=== PATIENT | male | born 1955 | race Caucasian/White ===

== ENCOUNTER 2017-02-14 16:17 | Observation (INO) | payer MEDICARE, OTHER ==
[2017-02-14] MEDS ORDERED: NORMAL SALINE 1,000 ML IV ONE ×2 (17:29→18:28)
[2017-02-14] MEDS ORDERED: ONDANSETRON HCL/PF 2 MG/ML VIAL IV ONE (17:37)
[2017-02-14 17:40] LABS: Hematocrit 40.1 % (42.0-52.0); Hemoglobin 14.5 gm/dL (13.5-18.0); Mean Cell Volume 101.3 fl (78-100); Mean Corpuscular Hemoglobin 36.6 pg (27-31); Mean Corpuscular Hgb Conc 36.2 g/dl (32-36); Mean Platelet Volume 9.6 fl (6.0-9.5); Neutrophil # 7.1 K/mm3 (1.3-6.0); Platelet Count 149 K/mm3 (150-450); Red Blood Count 3.96 M/mm3 (4.7-6.0); Red Cell Distribution Width 12.4 % (11.5-14.0)
[2017-02-14] MEDS ORDERED: ONDANSETRON HCL/PF 2 MG/ML VIAL ONE (17:47)
[2017-02-14] MEDS ORDERED: LORazepam 2 MG/ML DISP.SYRIN IV ONE (17:57)
[2017-02-14] MEDS ORDERED: LIDOCAINE HCL 20 ML UDC MM ONE (17:57)
[2017-02-14] MEDS ORDERED: MAG HYDROX/ALUMINUM HYD/SIMETH 30 ML UDC PO ONE (17:57)
[2017-02-14] MEDS ORDERED: SUCRALFATE 1 G/10 ML UDC PO ONE (17:57)
--- OUTSIDE RECORDS SUMMARY | 2017-02-14 17:58 | XMS REPORT | Continuity of Care Document ---
:1955 Author Organization [facility] ([facility]) [place] [address] Phone [phone] Care Team Providers Name Role Phone Provider, No-Primary Care Primary Care Provider Unavailable Source Comments This disclosure is being made pursuant to the Care Everywhere program, applicable federal and state laws, and may not contain all informaitonavailable regarding this patient.[facility] ([facility]) Active Allergies and Adverse Reactions Not on File Current Medications Not on file Active Problems Not on file Most Recent Encounters Date Type Specialty Providers Description 01/08/2017 Hospital Encounter Radiation Oncology Blaise Cuevas Chief Comp: Patient MD Reported Reason For Visit 12/06/2016 Hospital Encounter Radiation Oncology Blaise Cuevas Chief Comp: Patient MD Reported Reason For Visit 12/05/2016 Hospital Encounter Radiation Oncology Blaise Cuevas Chief Comp: Patient MD Reported Reason For Visit 12/04/2016 Hospital Encounter Radiation Oncology Blaise Cuevas Chief Comp: Patient MD Reported Reason For Visit 12/01/2016 Hospital Encounter Radiation Oncology Blaise Cuevas, Comp: Patient MD Reported Reason For Visit 11/30/2016 Hospital Encounter Radiation Oncology Blaise Cuevas Chief Comp: Patient MD Reported Reason For Visit 11/29/2016 Hospital Encounter Radiation Oncology Blaise Cuevas Chief Comp: Patient MD Reported Reason For Visit 11/28/2016 Hospital Encounter Radiation Oncology Blaise Cuevas Chief Comp: Patient MD Reported Reason For Visit 11/27/2016 Hospital Encounter Radiation Oncology Blaise Cuevas Chief Comp: Patient MD Reported Reason For Visit 11/24/2016 Hospital Encounter Radiation Oncology Blaise Cuevas Chief Comp: Patient MD Reported Reason For Visit 11/23/2016 Hospital Encounter Radiation Oncology Blaise Cuevas Chief Comp: Patient MD Reported Reason For Visit 11/22/2016 Hospital Encounter Radiation Oncology Blaise Cuevas Chief Comp: Patient MD Reported Reason For Visit 11/21/2016 Hospital Encounter Radiation Oncology Blaise Cuevas, Chief Comp: Patient MD Reported Reason For Visit 11/20/2016 Hospital Encounter Radiation Oncology Blaise Cuevas, Chief Comp: Patient MD Reported Reason For Visit 11/17/2016 Hospital Encounter Radiation Oncology Blaise Cuevas, Chief Comp: Patient MD Reported Reason For Visit 11/16/2016 Hospital Encounter Radiation Oncology Blaise Cuevas, Chief Comp: Patient MD Reported Reason For Visit Social History Tobacco Use Types Packs/Day Years Used Date Never Assessed Plan of Care Health Maintenance Due Date Last Done Comments HCV Screening 1955 Hepatitis B Vaccine (1 of 3 - Primary Series) 1955 Tdap Vaccine 02/01/1964 Lipid Disorder Screening 1971 Td Vaccine 1971 Pneumococcal Vaccine (1 of 3 - PCV13) 02/01/1972 Colonoscopy 2003 Prostate Cancer Screening 2003 Zoster Vaccine 2013 Influenza Vaccine: Seasonal (#1) 05/29/2016 Results from Last 3 Months Not on file
[2017-02-14 17:59] LABS: ALT 36 U/L (19-67); AST 45 U/L (0-48); Albumin * 4.7 gm/dl (3.4-5.0); Alkaline Phosphatase * 108 U/L (50-170); Amylase * 108 U/L (25-115); Anion Gap 27.5 mmol/L (6.8-13.8); BUN/Creatinine Ratio 18.3 (9.0-21.6); Bilirubin Direct 0.3 mg/dL (0.0-0.3); Bilirubin, Total 1.1 mg/dL (0.0-1.1); Bilirubin,Indirect 0.8 mg/dL (0.1-0.7); Blood Urea Nitrogen 24 mg/dL (6-23); Ca. Corrected For Albumin 9.1 mg/dL (8.4-10.2); Carbon Dioxide 23.6 mmol/L (24-32.6); Chloride 80 mmol/L (97-106); Glucose * 123 mg/dL (70-110); Lipase 245 U/L (73-393); Potassium 3.1 mmol/L (3.4-4.6); Sodium 128 mmol/L (132-142); Total Protein 8.5 gm/dL (6.2-8.2)
[2017-02-14] MEDS ORDERED: FAMOTIDINE 10 MG/ML VIAL IV ONE ×2 (18:01→18:03)
[2017-02-14] MEDS ORDERED: LORazepam 2 MG/ML DISP.SYRIN ONE (18:03)
[2017-02-14 18:04] LABS: Troponin I Less than 0.017 ng/ml (0.00-0.10)
[2017-02-14] MEDS ORDERED: METOCLOPRAMIDE HCL 5 MG/ML VIAL IV ONE (18:51)
[2017-02-14] MEDS ORDERED: METOCLOPRAMIDE HCL 5 MG/ML VIAL ONE (19:31)
--- NOTE | 2017-02-14 19:44 | ERNOTE ---
Medical Problem HPI - Narrative Date of Service: 02/14/17 - General Chief Complaint: Nausea/Vomiting Time Seen by Provider: 02/14/17 17:46 Source: patient Exam Limitations: no limitations - Immun/Allergies/Home Medications Immunizations: IMMUNIZATION HX Immunizations Up to Date Yes Allergies/Adverse Reactions: Allergies No Known Allergies Allergy (Verified 02/14/17 16:53) Home Medications: HOME MEDICATIONS traMADol HCL [Ultram] 50 mg PO Q6H PRN #60 tablet 07/13/14 [Last Taken Unknown] Gabapentin 800 mg PO TID 07/18/16 [Last Taken Unknown] - History of Present History Narrative: 62-year-old male presents to emergency room with malaise and nausea/vomiting. Patient states that he has not been able to keep down anything since . Patient also states that he drinks alcohol daily and has not been able to drink any alcohol for the last 3 days. Patient states that he is getting radiation for prostate cancer. Feels like he is in ETOH withdrawl and has had the hiccups for the last 3 days. Date (Duration): 02/14/17 Timing: constant, getting worse Severity: moderate Modifying Factors - (Worsens): Present: eating Review of Systems - Review of Systems Constitutional: Present: See HPI, weakness, fatigue, malaise EYE: Present: no symptoms reported ENT: Present: no symptoms reported Respiratory: Present: no symptoms reported Cardiology: Present: no symptoms reported Gastrointestinal/Abdominal: Present: See HPI, nausea, vomiting, abdominal pain, eating less, drinking less Genitourinary: Present: See HPI Musculoskeletal: Present: See HPI Skin: Present: See HPI Neurological: Present: See HPI - etoh withdrawl Endocrine: Present: no symptoms reported Hematologic/Lymphatic: Present: no symptoms reported Psych: Present: no symptoms reported - Patient's Past Medical History Patient History - Medical: Alcohol Abuse, Arthritis, Renal Failure Patient History - Cardiac/Respiratory: CVA/Stroke, Peripheral Vascular Disease Patient History - Cancer: Prostate Patient History - Surgical Procedures: Noncontributory, Other Patient History - Other: None - Family History Mother Family History - Medical: Other Family History - Cardiac/Respiratory: No pertinent hx Father Family History - Medical: , No pertinent hx Family History - Cardiac/Respiratory: No pertinent hx - Social History Living Situations: alone Abuse History: Hx of Substance Use Psych History: No pertinent hx Smoking Status: Current every day smoker Alcohol Use: heavy Drug Use: none - Immunizations Immunizations Up to Date: Yes Physical Exam - Physical Exam Narrative: patient appears ill. States he has had nausea and vomiting x 3 days. States he does drink daily but has not been able to drink x 3 days r/t nausea and vomiting. Oropharyngeal airway is red, no drainage observed, patient has left upper quadrant abdominal pain. Patient's mucous membranes are very dry. General Appearance: Present: wd/wn, alert, mild distress Eye Exam: Normal inspection: bilateral Ears, Nose, Throat: Present: normal except -, pharyngeal erythema Neck: Present: normal inspection, nontender Respiratory: Present: no respiratory distress, no accessory muscle use, chest nontender, decreased breath sounds - BLL Cardiovascular/Chest: Present: regular rate, rhythm, no murmur Gastrointestinal/Abdominal: Present: normal bowel sounds, tenderness Back Exam: Present: normal inspection, normal range of motion Neurological Exam: Present: alert, oriented, normal mood/affect, no motor/ sensory deficits Skin Exam: Present: normal color, warm/dry Lymphatic Exam: Present: no adenopathy ED Progress - Results and Orders Results and Orders: low k, NA elevated lactate - Vital Signs Vital Signs: Vital Signs 02/14/17 02/14/17 16:45 17:12 Temperature 37.2 C 36.6 C Pulse Rate 112 H 85 Respiratory 20 23 H Rate Blood Pressure 147/87 135/93 O2 Sat by Pulse 100 Oximetry - EKG EKG read: Reviewed by me EKG Comments: Interp by ER attending, no acute process - X-Ray X-Ray #1 X-Ray: chest Interpretation: Reviewed by me X-ray Comments: Technique: Upright frontal and lateral views of the chest were obtained. Findings: The cardiac silhouette is within normal limits of size. The mediastinum and hilum are with in normal limits. The lung dowell demonstrate hyperinflation, but appear are clear. I do not see evidence for an infiltrate, effusion or pulmonary edema. IMPRESSION: 1. HYPERINFLATION. 2. NO ACUTE CARDIOPULMONARY PROCESS. Electronically signed by Brian Baum M.D.. - CT/Ultrasound CT/Ultrasound Narrative: Technique: Multiple axial images were obtained from above the hemidiaphragms down through the pelvis without the use of IV contrast or oral contrast. The lack of IV contrast limits the evaluation of the solid organs, bowel, and vasculature system. Findings: The visualized costophrenic angles / lung bases are clear. The spleen and visualized liver are homogeneous in appearance for an unenhanced study. A gallbladder is in place and I do not see evidence for calcified gallstones. The adrenal glands are within normal limits. The pancreas is suboptimally evaluated without IV or oral contrast, but is grossly normal in appearance. A small pancreatic lesion cannot excluded. The abdominal aorta is of normal caliber. I do not see evidence for retroperitoneal adenopathy on this study. The stomach is grossly normal in appearance. The small bowel is of normal caliber. The appendix is identified and appears normal. The colon is suboptimally evaluated, but I'm not convinced of a definable colon lesion. There is minimal diverticulosis in the sigmoid colon without definable diverticulitis. The right and left renal parenchyma is normal in appearance for nonenhanced study, except for small cysts in the upper pole of the kidneys. A small mass, cyst, and pyelonephritis cannot be excluded without IV contrast. I do not see evidence for nonobstructing renal calculi in either kidney. The right and left ureters are of normal caliber and I'm not convinced of a definable calculus along the path of ureters. CT scan of pelvis: The urinary bladder is normal in appearance on this limited study. The prostate is not enlarged. I do not see evidence for free fluid, mass, or adenopathy in the pelvis. Bones demonstrate no definable acute osseous abnormality or osteoblastic lesion. A preliminary report was provided by [facility] on 02/14/2017 at 1909 hours IMPRESSION: 1. MILD DIVERTICULOSIS INVOLVING THE SIGMOID COLON. 2. SMALL CYST IN THE UPPER POLE OF THE KIDNEYS. 3. NO DEFINABLE ACUTE PROCESS WITHIN THE ABDOMEN AND PELVIS. CLINICAL CORRELATION REQUIRED Electronically signed by Brian Baum M.D.. - Progress/Reassessment Chief Complaint: Nausea/Vomiting Progress:: Improved Departure - Departure Clinical Impression: Hypovolemia dehydration, Electrolyte imbalance Sepsis Qualifiers: Sepsis type: sepsis due to unspecified organism Qualified Code(s): A41.9 - Sepsis, unspecified organism Disposition: [facility] Condition: Poor
[2017-02-14] MEDS ORDERED: POTASSIUM CHLORIDE 20 MEQ in NORMAL SALINE 1,000 ML IV SCH ×4 (19:45)
[2017-02-14] MEDS: POTASSIUM CHLORIDE 20 MEQ in NORMAL SALINE 1,000 ML IV SCH (20:17)
--- OUTSIDE RECORDS SUMMARY | 2017-02-14 20:34 | XMS REPORT | Continuity of Care Document ---
:1955 Author Organization [facility] ([facility]) [place] [address] Phone [phone] Care Team Providers Name Role Phone Provider, No-Primary Care Primary Care Provider Unavailable Source Comments This disclosure is being made pursuant to the Care Everywhere program, applicable federal and state laws, and may not contain all informaitonavailable regarding this patient.[facility] ([facility]) Active Allergies and Adverse Reactions Not on [...]
--- OUTSIDE RECORDS SUMMARY | 2017-02-14 20:36 | XMS REPORT | Continuity of Care Document ---
:1955 Author Organization [facility] ([facility]) [place] [address] Phone [phone] Care Team Providers Name Role Phone Provider, No-Primary Care Primary Care Provider Unavailable Source Comments This disclosure is being made pursuant to the Care Everywhere program, applicable federal and state laws, and may not contain all informaitonavailable regarding this patient.[facility] ([facility]) Active Allergies and Adverse Reactions [...] For Visit 11/29/2016 Hospital Encounter Radiation Oncology Blaies Cuevas Chief Comp: Patient MD Reported Reason [...]
[2017-02-14 20:54] LABS: Urine Bilirubin Negative (NEGATIVE); Urine Blood 25 /ul (NEGATIVE); Urine Ketone 50 mg/dL (NEGATIVE); Urine Nitrite Negative (NEGATIVE); Urine Protein Negative (NEGATIVE); Urine Specific Gravity <=1.005 SP.GR. (1.005-1.030); Urine Urobilinogen Normal (NORMAL)
[2017-02-14 21:16] LABS: Urine Appearance Clear; Urine Bacteria 2+; Urine Color Yellow; Urine RBC None Seen /hpf (0-5); Urine WBC None Seen /hpf (0-5)
[2017-02-14] MEDS ORDERED: traMADol HCL 50 MG TABLET PO PRN (21:18)
[2017-02-14] MEDS ORDERED: POTASSIUM CHLORIDE 20 MEQ TABLET.SA PO ONE (22:00)
[2017-02-14] MEDS: GABAPENTIN 400 MG CAPSULE PO SCH (22:40)
--- NOTE | 2017-02-14 23:17 | HP ---
Chief Complaint - Chief Complaint Date of Service: 02/14/17 Time of Service: 23:12 Chief Complaint: "Nausea, Vomiting.". Source of HPI- Pt reliable, ER provider report. History of Present Illness: Mr. Gabriel is a 62-yr-old WM pt of Dr. Gurdeep Smith with a PMH of:Alcoholism, CVA , Gastritis & Prostate Cancer. Pt reports that he begun vomiting today and he has not been able to keep liquids/foods down. He reports that he has 'bad acid reflux' which causes is throat to be sore, and leads him to have difficulty swallowing any foods. He states that he would manage to swallow liquids/foods, but then would throw up a few minutes later. He also states that he has had hiccups for the whole day and believes that it is what triggered his vomiting. He denies the associated symptoms of Abdominal pain/cramping and diarrhea. He also denies fevers, chills, C.P and SOB. During evaluation at the ED, the CXR, CT abdomen and UA were all unremarkable. However, he was noted to have Na level of 128 and K 3.1. Lactic acid was found to be 3.8, however WBC was in N.R. He will be admitted under observation due to signs of dehydration and to determine causes his n/v. - Patient's Past Medical History Patient History - Medical: Alcohol Abuse, Arthritis, Renal Failure, Other - Gastritis. Patient History - Cardiac/Respiratory: CVA/Stroke, Peripheral Vascular Disease Patient History - Cancer: Prostate Patient History - Surgical Procedures: Noncontributory Patient History - Other: None - Family History Mother Family History - Medical: Other Family History - Cardiac/Respiratory: No pertinent hx Family History - Cancer: No pertinent family hx Father Family History - Medical: , No pertinent hx Family History - Cardiac/Respiratory: No pertinent hx Family History - Cancer: Stomach - Social History Living Situations: parents Abuse History: Hx of Substance Use Psych History: Hx of Anxiety Smoking Status: Current every day smoker Have you smoked in the past 12 months: Yes Do you dip or chew tobacco: No Patient requests Smoking Cessation Consult: No Initiate information on Smoking Cessation: No Alcohol Use: heavy Drug Use: none - Immunizations Immunizations Up to Date: Yes Review Of Systems (GEN) - Review of Systems Generalized/Overall Review: Present: Weakness, Malaise. Absent: Chills, Fever EENTM: Present: Throat Pain. Absent: Eye Pain, Double Vision, Nose Pain, Nose Congestion Respiratory: Present: Cough. Absent: Shortness of Breath Cardiac: Absent: Chest Pain, Edema, Palpitations Abdominal: Present: Nausea, Vomiting. Absent: Abdominal Pain, Constipation, Diarrhea Genitourinary: Absent: Burning, Itching, Urgency, Frequency Musculoskeletal: Absent: Joint Pain, Back Pain Neurological: Present: Anxiety, Depressed, Emotional Problems. Absent: Headache Skin: Present: Dryness. Absent: Lesions Endocrine: Present: Intolerance to Cold, Increased Thirst Misc: All systems neg except as marked Immunizations: IMMUNIZATION HX Immunizations Up to Date Yes Allergies/Adverse Reactions: Allergies Allergy/AdvReac Type Severity Reaction Status Date / Time No Known Allergies Allergy Verified 02/14/17 23:02 Home Medications: HOME MEDICATIONS traMADol HCL [Ultram] 50 mg PO Q6H PRN #60 tablet 07/13/14 [Last Taken Unknown] Gabapentin 800 mg PO TID 07/18/16 [Last Taken Unknown] Exam - Exam Vital Signs: Vital Signs - Last Taken Temp 36.8 C 02/14/17 22:42 Pulse 91 02/14/17 22:42 Resp 18 02/14/17 22:42 BP 150/102 02/14/17 22:42 Pulse Ox 98 02/14/17 22:42 Constitutional: Present: Alert, Oriented x3, No distress, Thin and frail, Looks Older than stated age ENT Exam: Present: normal ENT inspection, hearing grossly normal, pharyngeal erythema, dry mucous membranes, other - Oral Thrush.. Absent: nasal congestion , nasal drainage Eye Exam: bilateral eye: normal inspection, PERRL Neck: Present: non-tender, full range of motion, supple Back Exam: Present: normal inspection, no CVA tenderness Breasts: Present: Exam deferred Respiratory: Present: lungs clear, No rales, No wheezing Cardiovascular/Chest: Present: regular rate, rhythm, no chest tenderness, no edema Abdomen: Present: Normal bowel sounds, soft, nontender /Rectal: Present: Exam deferred Extremity: Present: non-tender, normal inspection, no pedal edema Skin Exam: Present: cool/dry, pallor Lymphatic: Present: no adenopathy Neurologic: Present: no motor/sensory deficits, alert, oriented x 3 Appearance: Present: appropriate insight, disheveled Eye contact: Present: cooperative, good eye contact, normal speech Thoughts: Present: normal thought pattern, no apparent hallucination Diagnostic Studies: Abnormal Lab Results 02/14/17 Range/Units 22:10 Lactic Acid, Venous 2.0 H (0.4-1.9) mmol/L Laboratory Results WBC 8.0 K/mm3 (4.0-10.5) 02/14/17 17:31 RBC 3.96 M/mm3 (4.7-6.0) L 02/14/17 17:31 Hgb 14.5 gm/dL (13.5-18.0) 02/14/17 17:31 Hct 40.1 % (42.0-52.0) L 02/14/17 17:31 MCV 101.3 fl (78-100) H 02/14/17 17:31 MCH 36.6 pg (27-31) H 02/14/17 17:31 MCHC 36.2 g/dl (32-36) H 02/14/17 17:31 RDW 12.4 % (11.5-14.0) 02/14/17 17:31 Plt Count 149 K/mm3 (150-450) L 02/14/17 17:31 MPV 9.6 fl (6.0-9.5) H 02/14/17 17:31 Immature Gran % (Auto) 0.20 % (0.001-0.429) 02/14/17 17: Immature Gran # (Auto) 0.02 K/mm3 (0.000-0.0310) 02/14/17 17:31 Neutrophils % 88.0 % (42-75.0) H 02/14/17 17:31 Lymphocytes % 5.5 % (20-51) L 02/14/17 17:31 Monocytes % 6.2 % (0.0-9) 02/14/17 17:31 Eosinophils % 0.0 % (0.0-3.0) 02/14/17 17: Basophils % 0.1 % (0.0-1.0) 02/14/17 17:31 Nucleated RBC % 0.0 k/mm3 (0-1) 02/14/17 17:31 Neutrophils # 7.1 K/mm3 (1.3-6.0) H 02/14/17 17:31 Lymphocytes # 0.4 k/mm3 (1.5-3.5) L 02/14/17 17:31 Monocytes # 0.5 k/mm3 (0.0-1.0) 02/14/17 17:31 Eosinophils # 0.0 k/mm3 (0.0-0.7) 02/14/17 17:31 Absolute Basophils 0.0 k/mm3 (0.0-0.1) 02/14/17 17:31 Sodium 128 mmol/L (132-142) L 02/14/17 17:31 Plasma Sodium 128 mmol/L (130-142) L 02/14/17 17:31 Potassium 3.1 mmol/L (3.4-4.6) L 02/14/17 17:31 Chloride 80 mmol/L (97-106) L 02/14/17 17:31 Carbon Dioxide 23.6 mmol/L (24-32.6) L 02/14/17 17:31 Anion Gap 27.5 mmol/L (6.8-13.8) H 02/14/17 17:31 BUN 24 mg/dL (6-23) H D 02/14/17 17:31 Creatinine 1.31 mg/dL (0.4-1.4) D 02/14/17 17:31 Est GFR (Non-Af Amer) 59 mL/min (60-130) L D 02/14/17 17:31 BUN/Creatinine Ratio 18.3 (9.0-21.6) 02/14/17 17:31 Random Glucose 123 mg/dL (70-110) H 02/14/17 17:31 Lactic Acid, Venous 2.0 mmol/L (0.4-1.9) H 02/14/17 22:10 Calcium 10.0 mg/dL (7.9-10.9) 02/14/17 17:31 Calcium Adj for Albumin 9.1 mg/dL (8.4-10.2) 02/14/17 17:31 Total Bilirubin 1.1 mg/dL (0.0-1.1) 02/14/17 17:31 Direct Bilirubin 0.3 mg/dL (0.0-0.3) 02/14/17 17:31 Indirect Bilirubin 0.8 mg/dL (0.1-0.7) H 02/14/17 17:31 AST 45 U/L (0-48) 02/14/17 17:31 ALT 36 U/L (19-67) 02/14/17 17:31 Alkaline Phosphatase 108 U/L (50-170) 02/14/17 17:31 Troponin I Less than 0.017 ng/ml (0.00-0.10) 02/14/17 17: Total Protein 8.5 gm/dL (6.2-8.2) H 02/14/17 17:31 Albumin 4.7 gm/dl (3.4-5.0) 02/14/17 17: Amylase 108 U/L (25-115) 02/14/17 17: Lipase 245 U/L (73-393) 02/14/17 17:31 Urine Color Yellow 02/14/17 20:00 Urine Appearance Clear 02/14/17 20:00 Urine pH 6.0 pH (5.0-7.0) 02/14/17 20:00 Ur Specific Carpio <=1.005 SP.GR. (1.005-1.030) 02/14/17 20:00 Urine Protein Negative mg/dL (NEGATIVE) 02/14/17 20:00 Urine Glucose (UA) Negative mg/dL (NEGATIVE) 02/14/17 20:00 Urine Ketones 50 mg/dL (NEGATIVE) 02/14/17 20:00 Urine Blood 25 /ul (NEGATIVE) H 02/14/17 20:00 Urine Nitrate Negative (NEGATIVE) 02/14/17 20:00 Urine Bilirubin Negative mg/dl (NEGATIVE) 02/14/17 20:00 Urine Urobilinogen Normal EU/dl (NORMAL) 02/14/17 20:00 Ur Leukocyte Esterase Negative /ul (NEGATIVE) 02/14/17 20:00 Urine RBC None seen /hpf (0-5) 02/14/17 20:00 Urine WBC None seen /hpf (0-5) 02/14/17 20:00 Ur Epithelial Cells None seen /hpf (0-5) 02/14/17 20:00 Urine Bacteria 2+ (NONE) H 02/14/17 20:00 Urine Culture Comments No culture indicated 02/14/17 20:00 Group A Strep Rapid Negative (NEGATIVE) 02/14/17 17:50 Assessment/Plan - Assessment/Plan (1) Dehydration Assessment: Electrolytes consistent with dehydration. Will hydrate with IVF and with replacement of K. BMP in am. Problem: Acute (2) GERD with esophagitis Assessment: Pt reports having heartburn with regurgitation of acid that causes him to have sore throat and has difficulty swallowing foods. Will start him on a PPI for at least 4-8 weeks. Will encourage and provide information on diet/lifestyle modification. He reported having hiccups which may also be inducing his vomiting. More than 100 diseases and etiologies have known to induce persistent and intractable hiccups. His case likely fits an esophageal cause and could be due to GERD & Esophagitis. Problem: Acute (3) Oral candidiasis Assessment: He is noted to have whitish plaque on the tongue with pharyngeal erythema. Will start him on Oral nystatin swish. Problem: Acute (4) Lactic acidosis Assessment: The CXR & CT abdomen did not have any acute findings & UA did not show any infection. Also WBC and platelets are in the NR, therefore this may not be related to sepsis. Lactic acidosis is likely due to his chronic alcoholism. Problem: Acute (5) Prostate CA Assessment: Completed radiation treatment in Nov 2016 and is to continue with Lupron Shots for 2 yrs. Problem: Chronic
[2017-02-15] MEDS: POTASSIUM CHLORIDE 20 MEQ in NORMAL SALINE 1,000 ML IV SCH (03:32)
[2017-02-15 05:35] LABS: Hematocrit 33.6 % (42.0-52.0); Hemoglobin 11.9 gm/dL (13.5-18.0); Mean Cell Volume 103.1 fl (78-100); Mean Corpuscular Hemoglobin 36.5 pg (27-31); Mean Corpuscular Hgb Conc 35.4 g/dl (32-36); Mean Platelet Volume 9.3 fl (6.0-9.5); Neutrophil # 4.3 K/mm3 (1.3-6.0); Neutrophil % 82.6 % (42-75.0); Platelet Count 93 K/mm3 (150-450); Red Blood Count 3.26 M/mm3 (4.7-6.0); Red Cell Distribution Width 12.7 % (11.5-14.0); White Blood Count 5.2 K/mm3 (4.0-10.5)
[2017-02-15 05:48] LABS: Anion Gap 13.9 mmol/L (6.8-13.8); BUN/Creatinine Ratio 13.6 (9.0-21.6); Calcium * 8.5 mg/dL (7.9-10.9); Carbon Dioxide 27.6 mmol/L (24-32.6); Estimated Creat Clear 79.5; Potassium 3.5 mmol/L (3.4-4.6)
[2017-02-15] MEDS ORDERED: PANTOPRAZOLE SODIUM 20 MG TABLET.DR PO SCH (07:00)
[2017-02-15 07:18] VITALS: BP 130/76
[2017-02-15] MEDS: GABAPENTIN 400 MG CAPSULE PO SCH (08:27)
[2017-02-15] MEDS ORDERED: NYSTATIN 60 ML BTL PO SCH (09:00)
[2017-02-15] MEDS ORDERED: FLUCONAZOLE 200 MG TABLET PO SCH (10:15)
--- NOTE | 2017-02-15 10:23 | DS ---
(1) Dehydration Problem: Acute (2) Electrolyte imbalance Problem: Acute (3) GERD with esophagitis Problem: Chronic (4) Oral candidiasis Problem: Acute Description of Stay: Tommy is 62 year old male who presented to the er with c/o n/v, sore throat, ab cramping/pain. chest xray, ct abdomen/pelvis and UA were all unremarkable. wbc wnl. NA 128, K+ 3.1 and LA 3.8. pt was admitted for dehydration secondary to poor oral intake secondary to n/v. patient was started on iv fluids overnight. strep throat negative. in the morning after admission, Na was 135. patient was also diagnosed with oral thrush and started on nystatin and diflucan. he was discharged the day after admission with the following new medications: omeprazole, nystatin and diflucan. he was also educated to avoid spicy foods until his thrush resolves. Procedures Performed: none Discharge Disposition: Home self care Disposition: Home self-care Condition: Stable Discharge Activity: Activity as tolerated Discharge Diet: General/regular food Referrals: Gurdeep Smith DO [Primary Care Provider] - Problem Oriented Discharge Instructions to Patient/Family: Food Choices for Gastroesophageal Reflux Disease, Adult, [id number], Thrush, Adult Additional Patient Instructions (free text): Avoid super spicy and acidic foods. Follow up with Dr. Smith in 1 week on January at 2:00PM. New Meds: Omeprazole, nystatin, diflucan scripts sent electronically to [facility] Prescriptions (Any new or edited meds): Fluconazole [Diflucan] 200 mg PO DAILY #14 tablet Nystatin [Mycostatin 100 Mu/Ml Suspension] 5 ml PO QID #300 ml Omeprazole 40 mg PO QAM #30 capsule. Complete Home Medications List: Complete Home Medication List: traMADol HCL [Ultram] 50 mg PO Q6H PRN #60 tablet 07/13/14 Gabapentin 800 mg PO TID 07/18/16 Fluconazole [Diflucan] 200 mg PO DAILY #14 tablet 02/15/17 Nystatin [Mycostatin 100 Mu/Ml Suspension] 5 ml PO QID #300 ml 02/15/17 Omeprazole 40 mg PO QAM #30 capsule. 02/15/17
[2017-02-15] MEDS ORDERED: SUCRALFATE 1 G TABLET PO ONE (12:38)
== END 2017-02-15 13:00 | disposition home or self-care (01) ==
LOC: ER 16:17 → MS 20:30 → UNDOADMOB 20:30 → MS 20:32 → UNDOADMIN 20:32 → INTOOBSV 20:32
PROVIDERS: ADMIT Nurse Practitioner; ATTEND Family Medicine
DX: E86.0 Dehydration (principal); E87.1 Hypo-osmolality and hyponatremia; E87.2 Acidosis; K21.0 Gastro-esophageal reflux disease with esophagitis; B37.0 Candidal stomatitis; C61 Malignant neoplasm of prostate; F10.20 Alcohol dependence, uncomplicated; Z72.0 Tobacco use
CPT/HCPCS: 36415; 71020; 74176; 80048; 80053; 81001; 82150; 82248; 83605; 83690; 84484; 85025; 87040; 87081; 87430; 93005; 96361; 96365; 96366; 96375; 99284; G0378

== ENCOUNTER 2017-07-10 13:44 | Emergency (ER) | payer MEDICARE, MEDICAID ==
[2017-07-10] MEDS ORDERED: ONDANSETRON 4 MG TAB.RAPDIS PO ONE (14:03)
[2017-07-10] MEDS ORDERED: ONDANSETRON 4 MG TAB.RAPDIS ONE (14:04)
[2017-07-10] MEDS ORDERED: FAMOTIDINE 10 MG/ML VIAL IV ONE ×2 (14:47→14:54)
[2017-07-10] MEDS ORDERED: NORMAL SALINE 1,000 ML IV ONE (14:47)
[2017-07-10 15:01] LABS: Hematocrit 40.1 % (42.0-52.0); Hemoglobin 14.3 gm/dL (13.5-18.0); Mean Cell Volume 101.5 fl (78-100); Mean Corpuscular Hemoglobin 36.2 pg (27-31); Mean Corpuscular Hgb Conc 35.7 g/dl (32-36); Mean Platelet Volume 9.5 fl (6.0-9.5); Neutrophil # 6.8 K/mm3 (1.3-6.0); Neutrophil % 84.6 % (42-75.0); Platelet Count 115 K/mm3 (150-450); Red Blood Count 3.95 M/mm3 (4.7-6.0); Red Cell Distribution Width 12.2 % (11.5-14.0)
[2017-07-10 15:14] LABS: ALT 65 U/L (19-67); AST 73 U/L (0-48); Albumin * 4.5 gm/dl (3.4-5.0); Alkaline Phosphatase * 102 U/L (50-170); BUN/Creatinine Ratio 15.2 (9.0-21.6); Bilirubin, Total 1.2 mg/dL (0.0-1.1); Blood Urea Nitrogen 31 mg/dL (6-23); Ca. Corrected For Albumin 8.5 mg/dL (8.4-10.2); Calcium * 9.2 mg/dL (7.9-10.9); Carbon Dioxide 25.9 mmol/L (24-32.6); Chloride 83 mmol/L (97-106); Glucose * 102 mg/dL (70-110); Lipase 128 U/L (73-393); Magnesium 1.4 mg/dL (1.2-2.8); Potassium 3.9 mmol/L (3.4-4.6); Sodium 132 mmol/L (132-142); Total Protein 8.2 gm/dL (6.2-8.2)
--- NOTE | 2017-07-10 15:40 | ERNOTE ---
Time Seen by Provider: 07/10/17 14:43 Stated Complaint: DEHYDRATION Presenting Symptoms:: cough Source: patient, family Exam Limitations: no limitations Immunizations: IMMUNIZATION HX Immunizations Up to Date Yes Allergies/Adverse Reactions: Allergies No Known Allergies Allergy (Verified 07/10/17 14:02) Home Medications: HOME MEDICATIONS traMADol HCL [Ultram] 50 mg PO Q6H PRN #60 tablet 07/13/14 [Last Taken Unknown] Gabapentin 800 mg PO TID 07/18/16 [Last Taken Unknown] Doxycycline Monohydrate 100 mg PO BID #20 tablet 07/10/17 [Last Taken Unknown] Famotidine [Pepcid] 40 mg PO HS #30 tab 07/10/17 [Last Taken Unknown] Ondansetron [Zofran Odt] 4 mg PO Q6H PRN #20 tab 07/10/17 [Last Taken Unknown] - History of Present Ilness Narrative: Patient comes in complaining of 2 problems, first off he has a chronic cough from smoking but he is also having problems with his stomach with nausea from his excess alcohol consumption. Patient is a chronic alcoholic and gets frequent abdominal pain and this appears to be another one of the same episodes. Timing: intermittent Severity: moderate Frequency/Possible Cause: Reports: frequent episodes Associated Symptoms: Reports: cough Review of Systems - Review of Systems Constitutional: Present: See HPI EYE: Present: no symptoms reported ENT: Present: no symptoms reported Respiratory: Present: wheezing Cardiology: Present: no symptoms reported Gastrointestinal/Abdominal: Present: nausea, abdominal pain Genitourinary: Present: no symptoms reported Musculoskeletal: Present: no symptoms reported Skin: Present: no symptoms reported Neurological: Present: no symptoms reported Endocrine: Present: no symptoms reported Hematologic/Lymphatic: Present: no symptoms reported Psych: Present: no symptoms reported - Patient's Past Medical History Patient History - Medical: Alcohol Abuse, Arthritis, Renal Failure, Other Patient History - Cardiac/Respiratory: COPD, CVA/Stroke, Peripheral Vascular Disease Patient History - Cancer: Prostate, Radiation Therapy Patient History - Surgical Procedures: Amputation, Other Patient History - Other: None - Family History Mother Family History - Medical: Other Family History - Cardiac/Respiratory: No pertinent hx Family History - Cancer: No pertinent family hx Father Family History - Medical: , No pertinent hx Family History - Cardiac/Respiratory: No pertinent hx Family History - Cancer: Stomach - Social History Living Situations: parents Abuse History: Hx of Substance Use Psych History: Hx of Anxiety Smoking Status: Current every day smoker Have you smoked in the past 12 months: Yes Alcohol Use: heavy Drug Use: none - Immunizations Immunizations Up to Date: Yes Physical Exam - Physical Exam General Appearance: Present: wd/wn, alert, moderate distress Head Exam: Present: normal inspection Eye Exam: Normal inspection: bilateral, PERRL: bilateral Ears, Nose, Throat: Present: normal ENT inspection, H, normal pharynx Neck: Present: normal inspection, nontender Respiratory: Present: no respiratory distress, no accessory muscle use, chest nontender, wheezing Cardiovascular/Chest: Present: regular rate, rhythm, no murmur, normal peripheral pulses Gastrointestinal/Abdominal: Present: normal bowel sounds, nondistended, soft, no organomegaly, tenderness - in the epigastric region Rectal Exam: Present: deferred Back Exam: Present: normal inspection, normal range of motion Extremity Exam: Present: normal inspection, non-tender, no edema, normal range of motion Neurological Exam: Present: alert, oriented, normal mood/affect Skin Exam: Present: normal color, warm/dry Lymphatic Exam: Present: no adenopathy ED Progress - Results and Orders Patient's Lab Results:: I have reviewed the patient's lab results. - Vital Signs Patient's Vital Signs:: I have reviewed the patient's vital signs. Vital Signs: Vital Signs 07/10/17 07/10/17 13:59 14:56 Temperature 37.3 C Pulse Rate 92 95 Respiratory 14 16 Rate Blood Pressure 140/84 143/73 O2 Sat by Pulse 100 99 Oximetry - X-Ray X-Ray #1 X-Ray: chest Interpretation: Reviewed by me - Progress/Reassessment Chief Complaint: Upper Respiratory Symptoms Progress:: Improved Plan - Plan Plan: I told the patient that as long as he keeps smoking is going to continue to have a cough with bronchitis and that as long as he continues his alcohol consumption is going to have alcoholic gastritis. Patient appears to understand however with areas the will to do anything about his behavior is another question altogether. Departure - Departure Clinical Impression: AA (alcohol abuse), COPD with acute bronchitis Disposition: Home self-care Condition: Good Instructions: Gastritis, Adult, [id number], Chronic Obstructive Pulmonary Disease, [id number] Referrals: Gurdeep Smith DO [Primary Care Provider] - Prescriptions: Doxycycline Monohydrate 100 mg PO BID #20 tablet Famotidine [Pepcid] 40 mg PO HS #30 tab Ondansetron [Zofran Odt] 4 mg PO Q6H PRN #20 tab PRN Reason: Nausea And Vomiting
[2017-07-10 16:30] VITALS: BP 138/85
== END 2017-07-10 16:43 | disposition home or self-care (01) ==
LOC: ER 13:44
DX: J44.9 Chronic obstructive pulmonary disease, unspecified (principal); F10.10 Alcohol abuse, uncomplicated; Z85.46 Personal history of malignant neoplasm of prostate; F17.200 Nicotine dependence, unspecified, uncomplicated
CPT/HCPCS: 36415; 74020; 80053; 83690; 83735; 85025; 96374; 99284; G0481

== ENCOUNTER 2017-10-20 13:35 | Emergency (ER) | payer MEDICARE, MEDICAID ==
--- NOTE | 2017-10-20 14:36 | ERNOTE ---
Medical Problem HPI - General Chief Complaint: Nausea/Vomiting Time Seen by Provider: 10/20/17 14:13 Source: patient, family Exam Limitations: no limitations - Immun/Allergies/Home Medications Immunizations: IMMUNIZATION HX Immunizations Up to Date No History of Influenza Vaccine No Hx Pneumococcal Vaccination No Allergies/Adverse Reactions: Allergies No Known Allergies Allergy (Verified 07/10/17 14:02) Home Medications: HOME MEDICATIONS traMADol HCL [Ultram] 50 mg PO Q6H PRN #60 tablet 07/13/14 [Last Taken Unknown] Gabapentin 800 mg PO TID 07/18/16 [Last Taken Unknown] Famotidine [Pepcid] 40 mg PO HS #30 tab 10/20/17 [Last Taken Unknown] Ondansetron [Zofran Odt] 4 mg PO Q6H PRN #10 tab 10/20/17 [Last Taken Unknown] - History of Present History Narrative: Patient presents with epigastric abdominal pain with lingering nausea and multiple bouts of vomiting last night. Patient is to drinking roughly a plate of alcohol a day and understands that this is likely contributing to his chronic gastritis. He rates the pain as moderate in severity at this juncture. Timing: constant Severity: moderate Modifying Factors - (Worsens): Present: other - alcohol Review of Systems - Review of Systems Constitutional: Present: See HPI EYE: Present: no symptoms reported ENT: Present: no symptoms reported Respiratory: Present: no symptoms reported Cardiology: Present: no symptoms reported Gastrointestinal/Abdominal: Present: See HPI Genitourinary: Present: no symptoms reported Musculoskeletal: Present: no symptoms reported Skin: Present: no symptoms reported Neurological: Present: no symptoms reported Endocrine: Present: no symptoms reported Hematologic/Lymphatic: Present: no symptoms reported Psych: Present: other - alcohol addiction - Patient's Past Medical History Patient History - Medical: Alcohol Abuse, Anxiety, Depression Patient History - Cardiac/Respiratory: COPD, CVA/Stroke, Peripheral Vascular Disease Patient History - Cancer: Prostate, Radiation Therapy Patient History - Surgical Procedures: Amputation, Other Patient History - Other: None - Family History Mother Family History - Medical: Other Family History - Cardiac/Respiratory: No pertinent hx Family History - Cancer: No pertinent family hx Father Family History - Medical: , No pertinent hx Family History - Cardiac/Respiratory: No pertinent hx Family History - Cancer: Stomach - Social History Living Situations: home Abuse History: Hx of Substance Use Psych History: Hx of Anxiety, Hx of Depression Smoking Status: Current every day smoker Have you smoked in the past 12 months: Yes Do you dip or chew tobacco: No Patient requests Smoking Cessation Consult: No Initiate information on Smoking Cessation: No Alcohol Use: heavy Drug Use: none - Immunizations Immunizations Up to Date: No Hx Pneumococcal Vaccination: No History of Influenza Vaccine: No Physical Exam - Physical Exam General Appearance: Present: wd/wn, alert, moderate distress Head Exam: Present: normal inspection, no evidence of injury Eye Exam: Normal inspection: bilateral, PERRL: bilateral Ears, Nose, Throat: Present: normal pharynx, dry mucous membranes Neck: Present: normal inspection, nontender Respiratory: Present: no respiratory distress, normal breath sounds, no accessory muscle use, chest nontender, lungs clear Cardiovascular/Chest: Present: no murmur, normal peripheral pulses, tachycardia Gastrointestinal/Abdominal: Present: normal bowel sounds, nondistended, soft, no organomegaly, tenderness - primarily in the epigastric region, guarding Rectal Exam: Present: deferred Back Exam: Present: normal inspection, normal range of motion Extremity Exam: Present: normal inspection, non-tender, no edema, normal range of motion Neurological Exam: Present: alert, oriented, normal mood/affect Skin Exam: Present: normal color, warm/dry Lymphatic Exam: Present: no adenopathy ED Progress - Results and Orders Patient's Lab Results:: I have reviewed the patient's lab results. - Vital Signs Patient's Vital Signs:: I have reviewed the patient's vital signs. Vital Signs: Vital Signs 10/20/17 13:43 Temperature 36.3 C L Pulse Rate 110 H Respiratory 18 Rate Blood Pressure 107/76 O2 Sat by Pulse 100 Oximetry - X-Ray X-Ray #1 X-Ray: abdomen Interpretation: Reviewed by me - Progress/Reassessment Chief Complaint: Nausea/Vomiting Plan - Plan Plan: The patient does feel better however we had a long discussion with both he and the mother regarding alcoholic gastritis. Patient presents with intermittent hiccups as well and these were treated with IV Thorazine and IV Benadryl. Patient will be sent home with a prescription for Pepcid and Zofran and he agrees to look into [facility] to see whether he can get some help with his alcohol addiction. Departure Clinical Impression: Alcohol abuse Alcoholic gastritis Qualifiers: Chronicity: acute Gastritis bleeding: without bleeding Qualified Code(s): K29.20 - Alcoholic gastritis without bleeding - Departure Disposition: Home self-care Condition: Good Instructions: Alcohol Use Disorder, Gastritis, Adult, [id number] Referrals: Gurdeep Smith DO [Primary Care Provider] - Prescriptions: Famotidine [Pepcid] 40 mg PO HS #30 tab Ondansetron [Zofran Odt] 4 mg PO Q6H PRN #10 tab PRN Reason: Nausea And Vomiting
[2017-10-20 14:43] LABS: Hematocrit 38.3 % (42.0-52.0); Hemoglobin 14.1 gm/dL (13.5-18.0); Mean Corpuscular Hemoglobin 36.1 pg (27-31); Mean Corpuscular Hgb Conc 36.8 g/dl (32-36); Mean Platelet Volume 9.6 fl (6.0-9.5); Neutrophil # 8.7 K/mm3 (1.3-6.0); Neutrophil % 87.8 % (42-75.0); Platelet Count 112 K/mm3 (150-450); Red Blood Count 3.91 M/mm3 (4.7-6.0); Red Cell Distribution Width 12.5 % (11.5-14.0); White Blood Count 9.9 K/mm3 (4.0-10.5)
[2017-10-20 14:52] LABS: INR 0.97 INR (0.90-1.10); Prothrombin Time (Patient) 9.7 Seconds (9.0-11.0)
[2017-10-20] MEDS ORDERED: diphenhydrAMINE HCL 50 MG/ML VIAL ONE ×2 (15:04→16:25)
[2017-10-20] MEDS ORDERED: METOCLOPRAMIDE HCL 5 MG/ML VIAL ONE (15:04)
[2017-10-20] MEDS ORDERED: FAMOTIDINE 10 MG/ML VIAL IV ONE (15:05)
[2017-10-20 15:07] LABS: ALT 48 U/L (19-67); AST 68 U/L (0-48); Albumin * 4.6 gm/dl (3.4-5.0); Alkaline Phosphatase * 115 U/L (50-170); Anion Gap 26.3 mmol/L (6.8-13.8); BUN/Creatinine Ratio 18.2 (9.0-21.6); Bilirubin, Total 1.2 mg/dL (0.0-1.1); Blood Urea Nitrogen 35 mg/dL (6-23); CRP 2.2 mg/dL (0.0-0.9); Ca. Corrected For Albumin 8.5 mg/dL (8.4-10.2); Calcium * 9.3 mg/dL (7.9-10.9); Carbon Dioxide 24.2 mmol/L (24-32.6); Chloride 79 mmol/L (97-106); Glucose * 125 mg/dL (70-110); Lipase 282 U/L (73-393); Magnesium 1.6 mg/dL (1.2-2.8); Potassium 3.5 mmol/L (3.4-4.6); Sodium 126 mmol/L (132-142); Total Protein 8.4 gm/dL (6.2-8.2)
[2017-10-20] MEDS: NORMAL SALINE 1,000 ML IV ONE (15:08)
[2017-10-20] MEDS: diphenhydrAMINE HCL 50 MG/ML VIAL IV ONE ×2 (15:09→16:26)
[2017-10-20] MEDS: FAMOTIDINE 10 MG/ML VIAL IV ONE (15:11)
[2017-10-20] MEDS: METOCLOPRAMIDE HCL 5 MG/ML VIAL IV ONE (15:13)
[2017-10-20] MEDS ORDERED: diphenhydrAMINE HCL 50 MG/ML VIAL IV ONE (16:22)
[2017-10-20] MEDS: chlorproMAZINE HCL 20 MG in NORMAL SALINE 50 ML IV ONE (16:48)
[2017-10-20 17:18] VITALS: BP 120/70
== END 2017-10-20 17:16 | disposition home or self-care (01) ==
LOC: ER 13:35
DX: K29.20 Alcoholic gastritis without bleeding (principal); F10.10 Alcohol abuse, uncomplicated; J44.9 Chronic obstructive pulmonary disease, unspecified; Z86.73 Personal history of transient ischemic attack (TIA), and cerebral infarction without residual deficits; F17.200 Nicotine dependence, unspecified, uncomplicated
CPT/HCPCS: 36415; 74020; 80053; 83605; 83690; 83735; 85025; 85610; 86140; 96365; 96375; 96376; 99285; G0481

== ENCOUNTER 2019-04-09 10:41 | Observation (INO) ==
[2019-04-09] MEDS ORDERED: ONDANSETRON HCL/PF 2 MG/ML VIAL IV ONE (11:26)
[2019-04-09] MEDS ORDERED: NORMAL SALINE 1,000 ML IV ONE ×3 (11:26→21:05)
--- NOTE | 2019-04-09 11:31 | ERNOTE ---
Abdominal HPI - General Chief Complaint: General Assessment Time Seen by Provider: 04/09/19 11:13 Source: patient Exam Limitations: no limitations - Immun/Allergies/Home Medications Immunizatons: IMMUNIZATION HX Immunizations Up to Date No History of Influenza Vaccine No Hx Pneumococcal Vaccination No Allergies/Adverse Reactions: Allergies No Known Allergies Allergy (Verified 04/09/19 14:04) Home Medications: HOME MEDICATIONS furosemide 40 mg tablet 40 mg PO DAILY PRN 01/27/19 [Last Taken Unknown] pregabalin 75 mg capsule 75 mg PO BID #60 cap 01/27/19 [Last Taken Unknown] - History of Present Illness Narrative: Patient started to vomit two days ago, first he states that he only has had hiccups today but then states that he vomited last two hours ago, has tolerated 14oz of water since. Today he has had one episode of diarrhea today, not sure about blood in any of it, no abdominal pain, states that he has not had any ETOH in three days. He also feels tingling in his body, denies any shaking, no hallucinations Date (Duration): 04/06/19 Timing: constant Quality: moderate Activities at Onset: none Modifying Factors - (Worsens): Present: coughing Associated Symptoms: Absent: headache, shortness of breath Prior Abdominal Problems: Present: none Prior Treatment: Absent: recently seen, currently on antibiotics Review of Systems - Review of Systems Constitutional: Absent: recent illness, fever ENT: Present: sore throat. Absent: ear pain, nose congestion Respiratory: Absent: shortness of breath, cough Cardiology: Absent: chest pain Gastrointestinal/Abdominal: Present: See HPI, nausea, vomiting, diarrhea. Absent: abdominal pain Genitourinary: Present: no symptoms reported Neurological: Absent: headache Psych: Absent: anxiety Medical History (Updated 04/09/19 @ 12:54 by Rohini Wong MD) Onychomycosis (Chronic) Onset Date: Unknown Neuropathy (Chronic) Onset Date: Unknown Prostate cancer (Chronic) Onset Date: 2015 Alcoholism /alcohol abuse (Chronic) Onset Date: Unknown Crush injury Onset Date: 1970 Spine. Gastritis Onset Date: Unknown Sepsis Onset Date: Unknown Abnormal colonoscopy Onset Date: 03/26/18 Dr. Skyler Alvarez, [facility]. Destruction of 2mm polyp at 15cm and cauterization of patches of radiation induced neovascularity. Recheck 10 years. Embolic stroke Onset Date: ~2013 Surgical History: Surgical History (Updated 02/21/19 @ 15:19 by Ingris Azar RN) History of amputation Onset Date: 11/11/14 Dr. Henna Vargas, [facility]. 2nd, 3rd, and 4th toes; right foot. History of colonoscopy Onset Date: 03/26/18 Dr. Skyler Alvarez, [facility]. Destruction of 2mm polyp at 15cm and cauterization of patches of radiation induced neovascularity. Recheck 10 years. Family History: Family History (Updated 05/08/18 @ 18:23 by Jaci Petty LPN) Brother Alive and well 1 colon surgery, 2 healthy Father Cancer, Onset Age: 64 colon cancer Mother Hypertension Cancer melanoma Sister Alive and well Social History: Preferred Language Kyrgyz Smoking Status Current every day smoker Have you smoked in the past 12 Yes months Abuse History Hx of Substance Use Psych History Hx of Anxiety,Hx of Depression Alcohol Use heavy Drug Use none (Last Updated 02/12/19 @ 18:40 by Gurdeep Smith DO) No Social History Section defined Physical Exam - Physical Exam General Appearance: Present: wd/wn, alert, no apparent distress Head Exam: Present: normal inspection Eye Exam: Normal inspection: bilateral Ears, Nose, Throat: Present: normal except -, dry mucous membranes Respiratory: Present: no respiratory distress, no accessory muscle use, chest nontender, lungs clear, decreased breath sounds Cardiovascular/Chest: Present: regular rate, rhythm, no murmur Gastrointestinal/Abdominal: Present: normal bowel sounds, nontender, nondistended, soft Extremity Exam: Present: no edema Neurological Exam: Present: alert, oriented, normal mood/affect, other - no tremor Skin Exam: Present: normal color, warm/dry Progress - Results and Orders Patient's Lab Results:: I have reviewed the patient's lab results. - Vital Signs Patient's Vital Signs:: I have reviewed the patient's vital signs. Vital Signs: Vital Signs 04/09/19 10:49 Temperature 36.7 C Pulse Rate 104 H Respiratory Rate 14 Blood Pressure 109/66 O2 Sat by Pulse Oximetry 94 - Progress/Reassessment Chief Complaint: General Assessment Progress Note-Subjective: 04/09/19 11:31 CWAR score 3 04/09/19 12:43 patient comfortable, no pain , no vomiting or diarrhea at this point discussed test results and diagnosis of renal failure, offered admission, patient agreed 04/09/19 12:45 discussed with tom Paz to admit for acute renal failure and gastroenteritis will hold off on antibiotics as no obvious source of infection and WBC elevation probably from vomiting 04/09/19 12:48 discussed with case mgr, admit for observation Departure Clinical Impression: Alcoholism /alcohol abuse, Dehydration, Gastroenteritis Acute renal failure Qualifiers: Acute renal failure type: unspecified Qualified Code(s): N17.9 - Acute kidney failure, unspecified - Departure Disposition: Still a patient Condition: Stable
[2019-04-09 11:45] LABS: Hematocrit 38.9 % (42.0-52.0); Hemoglobin 13.4 gm/dL (13.5-18.0); Mean Cell Volume 105.4 fl (78-100); Mean Corpuscular Hemoglobin 36.3 pg (27-31); Mean Corpuscular Hgb Conc 34.4 g/dl (32-36); Mean Platelet Volume 9.5 fl (8-11.3); Neutrophil % 86.1 % (42-75.0); Platelet Count 216 K/mm3 (150-450); Red Blood Count 3.69 M/mm3 (4.7-6.0); Red Cell Distribution Width 13.2 % (11.5-14.0); White Blood Count 12.7 K/mm3 (4.0-10.5)
[2019-04-09 11:49] LABS: Prothrombin Time (Patient) 10.7 Seconds (9.1-10.7)
[2019-04-09 11:50] LABS: INR 1.08 INR (0.92-1.08); Partial Thrombolplastin Time 25.1 Seconds (24-32)
[2019-04-09 11:52] LABS: ALT 65 U/L (19-67); AST 68 U/L (0-48); Albumin * 3.8 gm/dl (3.4-5.0); Alkaline Phosphatase * 146 U/L (50-170); Amylase * 150 U/L (25-115); Anion Gap 27.3 mmol/L (6.8-13.8); BUN/Creatinine Ratio 10.2 (9.0-21.6); Bilirubin, Total 1.2 mg/dL (0.0-1.1); Blood Urea Nitrogen 33 mg/dL (6-23); Ca. Corrected For Albumin 7.1 mg/dL (8.4-10.2); Calcium * 7.3 mg/dL (7.9-10.9); Carbon Dioxide 29.7 mmol/L (24-32.6); Chloride 81 mmol/L (97-106); Glucose * 107 mg/dL (70-110); Lipase 92 U/L (73-393); Sodium 134 mmol/L (132-142); Total Protein 7.5 gm/dL (6.2-8.2)
[2019-04-09] MEDS ORDERED: ONDANSETRON HCL/PF 2 MG/ML VIAL IV PRN (13:11)
--- NOTE | 2019-04-09 15:17 | HP ---
Chief Complaint - Chief Complaint Date of Service: 04/09/19 Time of Service: 15:17 Chief Complaint: Nausea and Vomiting History of Present Illness: Alo is a 64 yo male who presents to the [facility] today for nausea and vomiting. He has not been able to eat or drink for a few days. He reports symptoms are related to alcohol intake. He thinks he drank alcohol on an empty stomach which he does not normally do and has been sick and unable to eat or drink since. No fever, chills. He denies abdominal pain. No recent illness or sick contacts. He reports some diarrhea. He states he has not drank alcohol for the past couple days. Medical History (Updated 04/09/19 @ 15:17 by Gurdeep Smith DO) Onychomycosis (Chronic) Onset Date: Unknown Neuropathy (Chronic) Onset Date: Unknown Prostate cancer (Chronic) Onset Date: 2015 Alcoholism /alcohol abuse (Chronic) Onset Date: Unknown Crush injury Onset Date: 1970 Spine. Gastritis Onset Date: Unknown Sepsis Onset Date: Unknown Abnormal colonoscopy Onset Date: 03/26/[address] [facility]. Destruction of 2mm polyp at 15cm and cauterization of patches of radiation induced neovascularity. Recheck 10 years. Embolic stroke Onset Date: ~2013 Surgical History: Surgical History (Updated 04/09/19 @ 15:17 by Gurdeep Smith DO) History of amputation Onset Date: 11/11/14 Dr. Henna Vargas, [facility]. 2nd, 3rd, and 4th toes; right foot. History of colonoscopy Onset Date: 03/26/[address] [facility]. Destruction of 2mm polyp at 15cm and cauterization of patches of radiation induced neovascularity. Recheck 10 years. Family History: Family History (Updated 05/08/18 @ 18:23 by Jaci Petty LPN) Brother Alive and well 1 colon surgery, 2 healthy Father Cancer, Onset Age: 64 colon cancer Mother Hypertension Cancer melanoma Sister Alive and well Social History: Patient Lives/Resources With Parents Utilized Preferred Language Iranian Do you have any christianity or Yes: Amish cultural preference? Smoking Status Current every day smoker Have you smoked in the past 12 Yes months Do you dip or chew tobacco No Abuse History Hx of Substance Use Psych History Hx of Anxiety,Hx of Depression Alcohol Use heavy Drug Use none (Last Updated 02/12/19 @ 18:40 by Gurdeep Smith DO) No Social History Section defined Review Of Systems (GEN) - Review of Systems Generalized/Overall Review: Present: Weakness. Absent: Chills, Fever EENTM: Present: No Symptoms Reported Respiratory: Absent: Cough, Shortness of Breath Cardiac: Absent: Chest Pain, Edema, Palpitations, Syncope Abdominal: Present: Nausea, Vomiting, Diarrhea. Absent: Abdominal Pain Genitourinary: Present: No Symptoms Reported Musculoskeletal: Present: No Symptoms Reported Neurological: Present: Tingling, Weakness Skin: Present: No Symptoms Reported Immunizations: IMMUNIZATION HX Immunizations Up to Date No History of Influenza Vaccine No Hx Pneumococcal Vaccination No Allergies/Adverse Reactions: Allergies Allergy/AdvReac Type Severity Reaction Status Date / Time No Known Allergies Allergy Verified 04/09/19 14:04 Home Medications: HOME MEDICATIONS furosemide 40 mg tablet 40 mg PO DAILY PRN 01/27/19 [Last Taken Unknown] pregabalin 75 mg capsule 75 mg PO BID #60 cap 01/27/19 [Last Taken Unknown] Exam - Exam Vital Signs: Vital Signs - Last Taken Temp 36.9 C 04/09/19 13:53 Pulse 86 04/09/19 13:53 Resp 16 04/09/19 13:53 BP 133/73 04/09/19 13:53 Pulse Ox 97 04/09/19 13:53 Constitutional: Present: Alert, Oriented x3, Cooperative ENT Exam: Present: hearing grossly normal Eye Exam: bilateral eye: normal inspection Respiratory: Present: lungs clear, normal breath sounds Cardiovascular/Chest: Present: regular rate, rhythm, no murmur Abdomen: Present: Normal bowel sounds, soft, nontender, nondistended, no rebound tenderness, no hepatospenomegaly Skin Exam: Present: normal color, warm/dry, no cyanosis Eye contact: Present: cooperative, good eye contact, normal speech Thoughts: Present: normal thought pattern, no apparent hallucination Diagnostic Studies: Abnormal Lab Results 04/09/19 04/09/19 Range/Units 11:35 11:35 WBC 12.7 H (4.0-10.5) K/mm3 RBC 3.69 L (4.7-6.0) M/mm3 Hgb 13.4 L (13.5-18.0) gm/dL Hct 38.9 L (42.0-52.0) % MCV 105.4 H (78-100) fl MCH 36.3 H (27-31) pg Immature Gran % (Auto) 0.90 H (0.001-0.429) % Immature Gran # (Auto) 0.11 H (0.000-0.0310) K/mm3 Neutrophils % 86.1 H (42-75.0) % Lymphocytes % 5.4 L (20-51) % Neutrophils # 11.0 H (1.3-6.0) K/mm3 Lymphocytes # 0.69 L (1.5-3.5) k/mm3 Chloride 81 L (97-106) mmol/L Anion Gap 27.3 H (6.8-13.8) mmol/L BUN 33 H D (6-23) mg/dL Creatinine 3.22 H D (0.4-1.4) mg/dL Est GFR (Non-Af Amer) 21 L D (60-130) mL/min Calcium 7.3 L (7.9-10.9) mg/dL Calcium Adj for Albumin 7.1 L (8.4-10.2) mg/dL Total Bilirubin 1.2 H (0.0-1.1) mg/dL AST 68 H (0-48) U/L Amylase 150 H (25-115) U/L Laboratory Results WBC 12.7 K/mm3 (4.0-10.5) H 04/09/19 11:35 RBC 3.69 M/mm3 (4.7-6.0) L 04/09/19 11:35 Hgb 13.4 gm/dL (13.5-18.0) L 04/09/19 11:35 Hct 38.9 % (42.0-52.0) L 04/09/19 11:35 MCV 105.4 fl (78-100) H 04/09/19 11:35 MCH 36.3 pg (27-31) H 04/09/19 11:35 MCHC 34.4 g/dl (32-36) 04/09/19 11:35 RDW 13.2 % (11.5-14.0) 04/09/19 11:35 Plt Count 216 K/mm3 (150-450) 04/09/19 11:35 MPV 9.5 fl (8-11.3) 04/09/19 11:35 Immature Gran % (Auto) 0.90 % (0.001-0.429) H 04/09/19 11:35 Immature Gran # (Auto) 0.11 K/mm3 (0.000-0.0310) H 04/09/19 11:35 86.1 % (42-75.0) H 04/09/19 11:35 5.4 % (20-51) L 04/09/19 11:35 7.4 % (0.0-9) 04/09/19 11:35 0.0 % (0.0-3.0) 04/09/19 11:35 0.2 % (0.0-1.0) 04/09/19 11:35 Nucleated RBC % 0.0 k/mm3 (0-1) 04/09/19 11:35 11.0 K/mm3 (1.3-6.0) H 04/09/19 11:35 0.69 k/mm3 (1.5-3.5) L 04/09/19 11:35 0.9 k/mm3 (0.0-1.0) 04/09/19 11:35 0.0 k/mm3 (0.0-0.7) 04/09/19 11:35 Absolute Basophils 0.0 k/mm3 (0.0-0.1) 04/09/19 11:35 PT 10.7 Seconds (9.1-10.7) 04/09/19 11:35 INR (Anticoag Therapy) 1.08 INR (0.92-1.08) 04/09/19 11:35 PTT (Jennifer) 25.1 Seconds (24-32) 04/09/19 11:35 Sodium 134 mmol/L (132-142) 04/09/19 11:35 134 mmol/L (130-142) 04/09/19 11:35 Potassium 4.0 mmol/L (3.4-4.6) 04/09/19 11:35 Chloride 81 mmol/L (97-106) L 04/09/19 11:35 Carbon Dioxide 29.7 mmol/L (24-32.6) 04/09/19 11:35 27.3 mmol/L (6.8-13.8) H 04/09/19 11:35 BUN 33 mg/dL (6-23) H D 04/09/19 11:35 3.22 mg/dL (0.4-1.4) H D 04/09/19 11:35 Est GFR (Non-Af Amer) 21 mL/min (60-130) L D 04/09/19 11:35 10.2 (9.0-21.6) 04/09/19 11:35 107 mg/dL (70-110) 04/09/19 11:35 Calcium 7.3 mg/dL (7.9-10.9) L 04/09/19 11:35 Calcium Adj for Albumin 7.1 mg/dL (8.4-10.2) L 04/09/19 11:35 1.2 mg/dL (0.0-1.1) H 04/09/19 11:35 AST 68 U/L (0-48) H 04/09/19 11:35 ALT 65 U/L (19-67) 04/09/19 11:35 146 U/L (50-170) 04/09/19 11:35 Less than 17.0 mcmol/L (11-35) 04/09/19 11:35 7.5 gm/dL (6.2-8.2) 04/09/19 11:35 3.8 gm/dl (3.4-5.0) 04/09/19 11:35 Amylase 150 U/L (25-115) H 04/09/19 11:35 92 U/L (73-393) 04/09/19 11:35 Ethyl Alcohol Less than 3.0 mg/dL (0.0-10.0) 04/09/19 11:35 Assessment/Plan - Narrative Narrative: Alo is a 64 yo male with acute renal failure with creatinine of 3 with a normal baseline just checked a couple months ago. He has been having nausea, vomiting, diarrhea, and unable to eat or drink for the last few days. This may be related to alcohol intake vs gastritis vs gastroenteritis. He will be admitted to observation and given IV fluids. Will control nausea with zofran. Will have him on clear liquid diet and advance as tolerated. If renal function is improved tomorrow he may be able to be discharged home if tolerating orals. - Assessment/Plan (1) Acute renal failure Problem: Acute Qualifiers: Acute renal failure type: unspecified Qualified Code(s): N17.9 - Acute kidney failure, unspecified (2) Gastroenteritis Problem: Acute (3) Alcoholism /alcohol abuse Problem: Chronic
[2019-04-09 15:56] LABS: Albumin * 3.4 gm/dl (3.4-5.0); Anion Gap 20.8 mmol/L (6.8-13.8); BUN/Creatinine Ratio 11.5 (9.0-21.6); Bilirubin, Total 0.8 mg/dL (0.0-1.1); Ca. Corrected For Albumin 7.1 mg/dL (8.4-10.2); Calcium * 6.9 mg/dL (7.9-10.9); Potassium 3.8 mmol/L (3.4-4.6); Total Protein 6.6 gm/dL (6.2-8.2)
[2019-04-09] MEDS ORDERED: CALCIUM CARBONATE 500 MG TAB.CHEW PO PRN (18:06)
[2019-04-09] MEDS: PHENOL 180 SPRAY BTL MM PRN (18:58)
[2019-04-09] MEDS: PREGABALIN 75 MG CAPSULE PO SCH (20:15)
[2019-04-09] MEDS: FAMOTIDINE 20 MG TABLET PO SCH (20:16)
[2019-04-09 23:41] LABS: Urine Bilirubin 6 mg/dl (NEGATIVE); Urine Ketone 50 mg/dL (NEGATIVE); Urine Nitrite Negative (NEGATIVE); Urine Protein 15 mg/dL (NEGATIVE); Urine Specific Gravity 1.015 SP.GR. (1.005-1.030); Urine Urobilinogen Normal (NORMAL)
[2019-04-09 23:48] LABS: Urine Appearance Clear (CLEAR); Urine Bacteria TRACE; Urine Blood 5 /ul (NEGATIVE); Urine Color Yellow; Urine Mucus Few - 1+; Urine RBC None Seen /hpf (0-5); Urine WBC None Seen /hpf (0-5)
[2019-04-10] MEDS: PREGABALIN 75 MG CAPSULE PO SCH (08:09)
[2019-04-10] MEDS: PHENOL 180 SPRAY BTL MM PRN (08:10)
[2019-04-10] MEDS: FAMOTIDINE 20 MG TABLET PO SCH (08:10)
[2019-04-10 10:30] LABS: Hematocrit 34.6 % (42.0-52.0); Hemoglobin 11.6 gm/dL (13.5-18.0); Mean Cell Volume 108.1 fl (78-100); Mean Corpuscular Hemoglobin 36.3 pg (27-31); Mean Corpuscular Hgb Conc 33.5 g/dl (32-36); Mean Platelet Volume 9.4 fl (8-11.3); Neutrophil % 78.2 % (42-75.0); Platelet Count 117 K/mm3 (150-450); Red Cell Distribution Width 13.2 % (11.5-14.0); White Blood Count 5.2 K/mm3 (4.0-10.5)
[2019-04-10 10:38] LABS: Albumin * 3.1 gm/dl (3.4-5.0); Anion Gap 10.1 mmol/L (6.8-13.8); BUN/Creatinine Ratio 12.3 (9.0-21.6); Bilirubin, Total 0.7 mg/dL (0.0-1.1); Ca. Corrected For Albumin 7.7 mg/dL (8.4-10.2); Calcium * 7.3 mg/dL (7.9-10.9); Carbon Dioxide 35.8 mmol/L (24-32.6); Potassium 2.9 mmol/L (3.4-4.6); Total Protein 6.2 gm/dL (6.2-8.2)
[2019-04-10] MEDS ORDERED: POTASSIUM CHLORIDE 20 MEQ TABLET.SA PO ONE (12:37)
[2019-04-10] MEDS ORDERED: NORMAL SALINE 1,000 ML IV PRN (12:53)
--- NOTE | 2019-04-10 14:52 | DS ---
(1) Acute renal failure Problem: Acute Qualifiers: Acute renal failure type: unspecified Qualified Code(s): N17.9 - Acute kidney failure, unspecified (2) Gastroenteritis Problem: Acute (3) Alcoholism /alcohol abuse Problem: Chronic (4) Hypokalemia Problem: Acute Description of Stay: Alo is a 64 yo male with alcohol abuse that presented with nausea, vomiting, diarrhea, and poor oral intake. It was suspected to be related to his alcohol intake and gastritis but could have been a viral gastroenteritis. He was given IV fluids and potassium was replaced and his creatinine improved from 3 to below 2. He is feeling better and tolerating orals. He will be discharged to home and encouraged to stay well hydrated. He will be given ranitidine to take for gastritis at bedtime. Procedures Performed: none Results and Findings: Lab Pending Results 04/09/19 11:35: WBC 12.7 H, RBC 3.69 L, Hgb 13.4 L, Hct 38.9 L, MCV 105.4 H, MCH 36.3 H, MCHC 34.4, RDW 13.2, Plt Count 216, MPV 9.5, Immature Gran % (Auto) 0.90 H, Immature Gran # (Auto) 0.11 H, Neutrophils % 86.1 H, Lymphocytes % 5.4 L, Monocytes % 7.4, Eosinophils % 0.0, Basophils % 0.2, Nucleated RBC % 0.0, Neutrophils # 11.0 H, Lymphocytes # 0.69 L, Monocytes # 0.9, Eosinophils # 0.0, Absolute Basophils 0.0 04/09/19 11:35: PT 10.7, INR (Anticoag Therapy) 1.08, PTT (Jennifer) 25.1 04/09/19 11:35: Sodium 134, Plasma Sodium 134, Potassium 4.0, Chloride 81 L, Carbon Dioxide 29.7, Anion Gap 27.3 H, BUN 33 H D, Creatinine 3.22 H D, Est GFR (Non-Af Amer) 21 L D, BUN/Creatinine Ratio 10.2, Random Glucose 107, Calcium 7.3 L, Calcium Adj for Albumin 7.1 L, Total Bilirubin 1.2 H, AST 68 H, ALT 65, Alkaline Phosphatase 146, Total Protein 7.5, Albumin 3.8, Amylase 150 H, Lipase 92, Ethyl Alcohol Less than 3.0 04/09/19 11:35: Ammonia Less than 17.0 04/09/19 15:30: Sodium 135, Plasma Sodium 135, Potassium 3.8, Chloride 87 L, Carbon Dioxide 31.0, Anion Gap 20.8 H, BUN 34 H, Creatinine 2.96 H, Est GFR (Non-Af Amer) 23 L, BUN/Creatinine Ratio 11.5, Random Glucose 94, Calcium 6.9 L, Calcium Adj for Albumin 7.1 L, Total Bilirubin 0.8, AST 53 H, ALT 56, Alkaline Phosphatase 122, Total Protein 6.6, Albumin 3.4 04/09/19 23:24: Urine Color Yellow, Urine Appearance Clear, Urine pH 6.0, Ur Specific Leonore 1.015, Urine Protein 15 H, Urine Glucose (UA) Negative, Urine Ketones 50, Urine Blood 5 H, Urine Nitrate Negative, Urine Bilirubin 6 H, Urine Ictotest Negative, Prot Sulfosalicylic Acd 1+, Urine Urobilinogen Normal, Ur Leukocyte Esterase Negative, Urine RBC None seen, Urine WBC None seen, Ur Epithelial Cells 5-10 H, Urine Bacteria Trace, Urine Mucus Few - 1+ H, Urine Culture Comments No culture indicated 04/10/19 10:23: WBC 5.2 D, RBC 3.20 L, Hgb 11.6 L, Hct 34.6 L, MCV 108.1 H, MCH 36.3 H, MCHC 33.5, RDW 13.2, Plt Count 117 L, MPV 9.4, Immature Gran % (Auto) 1.40 H, Immature Gran # (Auto) 0.07 H, Neutrophils % 78.2 H, Lymphocytes % 10.9 L, Monocytes % 9.1 H, Eosinophils % 0.2, Basophils % 0.2, Nucleated RBC % 0.0, Neutrophils # 4.0, Lymphocytes # 0.56 L, Monocytes # 0.5, Eosinophils # 0.0, Absolute Basophils 0.0 04/10/19 10:23: Sodium 134, Plasma Sodium 134, Potassium 2.9 L D, Chloride 91 L, Carbon Dioxide 35.8 H, Anion Gap 10.1, BUN 24 H, Creatinine 1.95 H D, Est GFR (Non-Af Amer) 37 L D, BUN/Creatinine Ratio 12.3, Random Glucose 131 H D, Calcium 7.3 L, Calcium Adj for Albumin 7.7 L, Total Bilirubin 0.7, AST 49 H, ALT 46, Alkaline Phosphatase 117, Total Protein 6.2, Albumin 3.1 L Discharge Location: Home Disposition: Home self-care Condition: Stable Discharge Activity: Activity as tolerated Discharge Diet: General/regular food - push fluids Referrals: Gurdeep Smith DO [Primary Care Provider] - One Week Problem Oriented Discharge Instructions to Patient/Family: Acute Kidney Injury, Gastritis, Adult, [id number] Additional Patient Instructions (free text): -Please make TCM appointment unless snf discharge. Thank you! Shasta at [phone]. Prescriptions (Any new or edited meds): Ranitidine HCl [Zantac] 300 mg PO HS #30 tab Complete Home Medications List: Complete Home Medication List: furosemide 40 mg tablet 40 mg PO DAILY PRN 01/27/19 pregabalin 75 mg capsule 75 mg PO BID #60 cap 01/27/19 Ranitidine HCl [Zantac] 300 mg PO HS #30 tab 04/10/19
[2019-04-10 15:39] VITALS: BP 120/77
== END 2019-04-10 15:58 | disposition home or self-care (01) ==
LOC: ER 10:41 → MS 10:41
PROVIDERS: ADMIT Family Medicine; ATTEND Family Medicine
CPT/HCPCS: 36415; 74019; 74020; 80053; 80320; 81001; 82140; 82150; 83690; 85025; 85610; 85730; 96361; 96374; 99285; G0378; G0481; J2405